=== PATIENT | male | born 1985 | race American Indian/Alaskan Native ===

== ENCOUNTER 2020-10-30 11:48 | Emergency (ER) | payer OTHER ==
[2020-10-30] MEDS ORDERED: HYDROcodone/ACETAMINOPHEN 5-325 MG TAB PO ONE (13:58)
[2020-10-30] MEDS ORDERED: ONDANSETRON 4 MG ODT TAB PO ONE (13:58)
[2020-10-30 13:59] VITALS: BP 138/76
--- NOTE | 2020-10-30 14:01 | Emergency Department Report ---
ED General Adult HPI - General Chief complaint: Extremity Injury, Upper Stated complaint: BROKEN WRIST Time Seen by Provider: 10/30/20 13:57 Source: patient Mode of arrival: Ambulatory Limitations: No Limitations - History of Present Illness Initial comments: 34-year-old [id number] male patient presents to the emergency department with complaints of left arm pain, left wrist pain, left hand pain, right shoulder pain, and left lower leg pain status post fall. Patient states he fell off of a ladder approximately equivalent to the height of a one-story building. There was no resulting head injury or loss of consciousness. Patient reportedly attempted to break his fall using his left arm. Denies headache, neck pain, back pain, chest pain, abdominal pain, paresthesias, numbness, weakness. Denies all other complaints at this time. - Related Data Previous Rx's Medication Instructions Recorded Last Taken Type Ibuprofen [Motrin] 800 mg PO Q8HR PRN #20 tablet 02/14/18 Unknown Rx methOCARBAMOL [Robaxin TAB] 500 mg PO Q6H PRN #15 tablet 02/14/18 Unknown Rx traMADoL [Ultram] 50 mg PO Q6HR PRN #10 tablet 02/14/18 Unknown Rx HYDROcodone/APAP 5-325 [[place] 1 each PO Q4HR PRN #10 tablet 10/30/20 Unknown Rx 5/325] Naproxen 500 mg PO BID #20 tablet 10/30/20 Unknown Rx Allergies Allergy/AdvReac Type Severity Reaction Status Date / Time No Known Allergies Allergy Verified 02/14/18 12:29 ED Review of Systems ROS: Stated complaint: BROKEN WRIST Other details as noted in HPI Other: CARDIOVASCULAR: Negative for chest pain. PULMONARY: Negative for dyspnea. GASTROINTESTINAL: Negative for abdominal pain. MUSCULOSKELETAL: Positive for joint pain. NEUROLOGICAL: Negative for headache. INTEGUMENTARY: Negative for ecchymosis. ED Past Medical Hx - Past Medical History Previous Medical History?: No - Surgical History Past Surgical History?: No - Social History Smoking Status: Never Smoker Substance Use Type: None - Medications Home Medications: Home Medications Medication Instructions Recorded Confirmed Last Taken Type Ibuprofen [Motrin] 800 mg PO Q8HR PRN #20 tablet 02/14/18 Unknown Rx methOCARBAMOL [Robaxin TAB] 500 mg PO Q6H PRN #15 tablet 02/14/18 Unknown Rx traMADoL [Ultram] 50 mg PO Q6HR PRN #10 tablet 02/14/18 Unknown Rx HYDROcodone/APAP 5-325 [[place] 1 each PO Q4HR PRN #10 tablet 10/30/20 Unknown Rx 5/325] Naproxen 500 mg PO BID #20 tablet 10/30/20 Unknown Rx ED Physical Exam - General Limitations: No Limitations - Other Other exam information: Airway: Patent and intact. Trachea is midline. Breathing: Clear to auscultation bilaterally. No respiratory distress. Circulation: Regular rate and rhythm, no murmurs, no pulse deficit, normal peripheral perfusion. Deficit (Neuro): Awake, alert, appropriately interactive. GCS 15. Strength and sensation intact. Follows commands. No focal deficits. HEENT: Normocephalic, atraumatic. EOMI. Pupils equal and round. Facial bones are stable. No ecchymosis suggestive of basilar skull fracture. Neck: No posterior midline cervical tenderness. No step-offs. Active rotation of the cervical spine intact bilaterally. Chest Wall: Equal chest rise. Chest wall is non-tender, no deformity, no crepitus. Abdominal: Soft, non-tender. No guarding, rigidity, or rebound. No discoloration. No organomegaly. Skin: No abrasions, lacerations, or ecchymosis. Back: No midline thoracic or lumbar tenderness. No step-offs. Extremities: Tenderness to palpation throughout the left wrist with obvious soft tissue swelling. Tenderness to palpation along the distal left lower leg and painful range of motion of the right shoulder. No obvious deformity or dislocation. Distal neurovascular and motor/sensory function intact. Ambulatory without assistance. ED Course Vital Signs 10/30/20 13:57 Temperature 97.9 F Pulse Rate 67 Respiratory 18 Rate Blood Pressure 138/76 [Right] O2 Sat by Pulse 99 Oximetry ED Medical Decision Making - Radiology Data [facility] [address] [place] [address] XRay Report Signed Patient: EMILE BOWEN MR#: [id number] : 1985 Acct:[id number] Age/Sex: 34 / M ADM Date: 10/30/20 Loc: ED Attending Dr: Ordering Physician: TELLO MIRANDA Date of Service: 10/30/20 Procedure(s): XR forearm LT Accession Number(s): [id number] cc: TELLO MIRANDA Time In Minutes: RIGHT SHOULDER 3 VIEWS 1409 INDICATION: trauma COMPARISON: None available. FINDINGS: Negative study LEFT FOREARM 2 VIEWS 1415 INDICATION: trauma COMPARISON: None available. FINDINGS: Appearance of the distal humerus on AP view is probably due to mild obliquity though the metaphysis has a somewhat deformed appearance. Likely this is long-standing. No proximal radial or ulnar abnormalities are seen. Distal fractures are noted as below. LEFT WRIST 3 VIEWS 1419 INDICATION: trauma COMPARISON: None available. FINDINGS: Complex ulnar styloid fracture is seen a complex fracture is seen of the distal radius which includes a transverse component through the area of the previous physis and a more vertical component through the medial metaphysis. Mild dorsal angulation is seen. No obvious dislocation is noted. LEFT HAND 3 VIEWS 1419 INDICATION: trauma COMPARISON: None available. FINDINGS: Radial and ulnar fractures are noted as above. No hand fractures are seen. LEFT TIBIA FIBULA 2 VIEWS 1426 INDICATION: trauma COMPARISON: None available. FINDINGS: No fractures or dislocations are seen. Signer Name: Tarik Case MD Signed: 10/30/2020 3:06 PM Workstation Name: [id number] Transcribed By: GJ Dictated By: Tarik Case MD Electronically Authenticated By: Tarik Case MD Signed Date/Time: 10/30/201505 DD/ 150 TD/TT: - Medical Decision Making Differential diagnosis including but not limited to: sprain, strain, fracture, contusion, dislocation On reevaluation, patient remains stable. Repeat neurovascular exam remains intact. X-rays significant for complex ulnar styloid fracture and distal radius fracturing including a transverse component through the area of the previous physis and a more vertical component through the medial metaphysis with mild dorsal angulation. Patient will be placed in a sugar tong splint as well as a sling for comfort. Prescribed short course of analgesics and referred to orthopedics for close outpatient follow-up. Patient expressed understanding and is agreeable to plan of care. RICE precautions discussed. Strict return precautions provided. Repeat exam is unremarkable and benign. History, exam, diagnostic testing, and current condition do not suggest worrisome pathology to warrant further testing, continued ED treatment, admission, or surgical evaluation at this point. Given the low probability of a significant medical illness, it would be more likely to result in harm than benefit to perform further testing at this stage. Discussed findings, presumptive diagnosis, need for follow-up and specific signs/symptoms that should prompt immediate return to the emergency department. Instructions were explained in detail to the patient in addition to giving written discharge information. Patient expressed understanding and was given the opportunity to ask questions, all of which were satisfactorily answered prior to discharge home. Case discussed with Dr. Carrasco, attending emergency physician, who personally reviewed images and agrees with plan of care. Critical care attestation.: If time is entered above; I have spent that time in minutes in the direct care of this critically ill patient, excluding procedure time. ED Disposition Clinical Impression: Displaced fracture of left ulna styloid process, initial encounter for closed fracture, Contusion of left lower leg, initial encounter Left radial fracture Qualifiers: Encounter type: initial encounter Radius location: distal Fracture type: closed Fracture morphology: unspecified fracture morphology Qualified Code(s): S52.502A - Unspecified fracture of the lower end of left radius, initial encounter for closed fracture Disposition: 01 HOME / SELF CARE / HOMELESS Is pt being admited?: No Does the pt Need Aspirin: No Condition: Stable Instructions: Contusion, [id number]-ro-[id number], Forearm Fracture Rehab-SportsMed Additional Instructions: Take Naprosyn twice daily with food as needed for pain. If this medication is not sufficient in controlling your pain, take [place] with food as directed for pain. Do not drive or operate machinery while taking this medication. Wear splint as directed. Wear sling as needed for comfort. Follow-up with Dr. Bush, orthopedics, this week. Call Sunday to schedule an appointment. See referral information below. Return to the emergency department immediately for new or worsening symptoms. Prescriptions: Naproxen 500 mg PO BID #20 tablet HYDROcodone/APAP 5-325 [[place] 5/325] 1 each PO Q4HR PRN #10 tablet PRN Reason: Pain Referrals: MARK BUSH MD [Staff Physician] - 3-5 Days Forms: Work/School Release Form(ED) Time of Disposition: 15:57
--- NOTE | 2020-10-30 15:10 | XRay Report ---
RIGHT SHOULDER 3 VIEWS 1409 INDICATION: trauma COMPARISON: None available. FINDINGS: Negative study LEFT FOREARM 2 VIEWS 1415 INDICATION: trauma COMPARISON: None available. FINDINGS: Appearance of the distal humerus on AP view is probably due to mild obliquity though the me taphysis has a somewhat deformed appearance. Likely this is long-standing. No proximal radial or ulna r abnormalities are seen. Distal fractures are noted as below. LEFT WRIST 3 VIEWS 1419 INDICATION: trauma COMPARISON: None available. FINDINGS: Complex ulnar styloid fracture is seen a complex fracture is seen of the distal radius whic h includes a transverse component through the area of the previous physis and a more vertical compone nt through the medial metaphysis. Mild dorsal angulation is seen. No obvious dislocation is noted. LEFT HAND 3 VIEWS 1419 INDICATION: trauma COMPARISON: None available. FINDINGS: Radial and ulnar fractures are noted as above. No hand fractures are seen. LEFT TIBIA FIBULA 2 VIEWS 1426 INDICATION: trauma COMPARISON: None available. FINDINGS: No fractures or dislocations are seen. Signer Name: Tarik Case MD Signed: 10/30/2020 3:06 PM Workstation Name: [id number]
== END 2020-10-30 16:05 | disposition home or self-care (01) ==
LOC: ED 11:48
DX: S52.592A Other fractures of lower end of left radius, initial encounter for closed fracture (principal); S52.612A Displaced fracture of left ulna styloid process, initial encounter for closed fracture; S80.12XA Contusion of left lower leg, initial encounter; M25.511 Pain in right shoulder; Z79.899 Other long term (current) drug therapy; W18.39XA Other fall on same level, initial encounter; Y93.89 Activity, other specified; Y92.89 Other specified places as the place of occurrence of the external cause; Y99.8 Other external cause status
CPT/HCPCS: 99284; Q0162